=== PATIENT | female | born 1990 | race Caucasian/White ===

== ENCOUNTER → 2022-03-26 | Outpatient (CLI) | payer BC ==
--- NOTE | 2022-03-26 10:56 | Diagnostic Imaging Report ---
PROCEDURE: US Abdomen, limited. TECHNIQUE: Multiple realtime grayscale images were obtained over the abdomen in various projections. INDICATION: Right upper quadrant pain. FINDINGS: The liver is enlarged at approximately 21 cm. The liver shows diffuse increased echogenicity consistent with hepatic steatosis. No discrete liver mass is detected. The portal vein is patent and shows normal direction of flow. Gallbladder is without stones or sludge. There is no wall thickening or biliary ductal dilatation. Pancreas was obscured by bowel gas. Proximal aorta is nonaneurysmal. The mid and distal aorta were not visualized due to overlying bowel gas. IVC is unremarkable. Right kidney is without calculi or hydronephrosis. IMPRESSION: 1. Hepatomegaly and hepatic steatosis. 2. No evidence of cholelithiasis or acute cholecystitis. Dictated by: Dictated on workstation # [id number]
== END ==
LOC: RAD 09:09
PROVIDERS: ATTEND Surgery
DX: K76.0 Fatty (change of) liver, not elsewhere classified (principal)
CPT/HCPCS: 76705

== ENCOUNTER → 2022-04-08 | Outpatient (CLI) | payer BC ==
[~2022-04-08] MED LIST: CATHETER FLUSH 10 ML SYR IVP PRN
--- NOTE | 2022-04-08 15:49 | Diagnostic Imaging Report ---
HEPATOBILIARY SCAN DATE: April 08, 2022. INDICATION: Right upper quadrant ultrasound March 26, 2022. PROCEDURE: 4.88 mCi of Tc-99m choletec was administered intravenously and serial anterior planar images over the liver and upper abdomen were obtained. FINDINGS: There is homogenous activity throughout the liver with good clearance of background activity. This indicates good hepatocellular function. Biliary tree activity is seen at 10 minutes. The gallbladder is seen at 25 minutes. There is no enterogastric reflux. The biliary tree is patent. There is no evidence of acute cholecystitis. Ensure was administered. Gallbladder ejection fraction was calculated to be 7.4%. IMPRESSION: 1. No evidence of acute cholecystitis. 2. No evidence of complete common bile duct obstruction. 3. Gallbladder ejection fraction of 7.4% which is below normal limits and may be seen in the setting of biliary dyskinesia and/or chronic cholecystitis. Dictated by: Dictated on workstation # [id number]
== END ==
LOC: CARD 12:00
PROVIDERS: ATTEND Surgery
DX: R10.11 Right upper quadrant pain (principal)
CPT/HCPCS: 78227; A9537

== ENCOUNTER → 2022-09-23 | Outpatient (CLI) | payer OTHER ==
[~2022-09-23] MED LIST changes: +BARIUM for suspension 96% w/w (Vanilla Silq Medium Density) PO ONE; +BARIUM for suspension 98% w/w (Vanilla Silq High Density) PO ONE; -CATHETER FLUSH 10 ML SYR IVP PRN
--- NOTE | 2022-09-23 11:09 | Diagnostic Imaging Report ---
INDICATION: Pre-gastric sleeve workup. Patient ingested effervescent crystals as well as thin and thick barium and imaging of the esophagus, stomach and proximal small bowel was performed. Total of 58 seconds of fluoroscopic time was utilized. The esophagus has a smooth contour. No mass or stricture is identified. No hiatal hernia or gastroesophageal reflux was demonstrated. Stomach is without deformity. Proximal small bowel loops were not opacified on this study. IMPRESSION: Unremarkable upper gastrointestinal study. Dictated by: Dictated on workstation # [id number]
== END ==
LOC: RAD 08:49
PROVIDERS: ATTEND Surgery
DX: Z01.818 Encounter for other preprocedural examination (principal); K21.9 Gastro-esophageal reflux disease without esophagitis
CPT/HCPCS: 74246

== ENCOUNTER 2022-10-13 05:36 | Outpatient (CLI) | payer OTHER ==
[~2022-10-13] VITALS: Ht 165.1 cm; Wt 112.8 kg
[2022-10-13] MEDS ORDERED: LISD40CA3 PO (10:19)
[2022-10-13] MEDS ORDERED: BUSP10TA95 PO (10:19)
[2022-10-13] MEDS ORDERED: ALPR0.5T PO (10:19)
[2022-10-13] MEDS ORDERED: LAMO150T4 PO (10:19)
[2022-10-13] MEDS ORDERED: TRZ50T PO (10:19)
== END 2022-10-13 10:36 | disposition home or self-care (01) ==
LOC: PREOP 05:36
PROVIDERS: ATTEND Surgery
DX: Z01.818 Encounter for other preprocedural examination (principal)

== ENCOUNTER 2022-10-21 12:36 | Day surgery (SDC) | payer OTHER ==
--- NOTE | 2022-10-20 12:01 | HISTORY AND PHYSICAL ---
DATE OF SERVICE: 10/21/2022 ATTENDING PRIMARY CARE PHYSICIAN: Aidan Rodriguez at [facility] HISTORY OF PRESENT ILLNESS: The patient is a 32-year-old female with morbid obesity, who was interested in a laparoscopic gastric sleeve resection and meets the medical criteria for bariatric surgery. She reports that she began to gain the majority of her adult weight after the of her child 10 years ago and reports that the majority of this has been over the past two years. She reports that she has tried diets in the past such as Weight Watchers, Atkins, SlimFast, Keto, Beachbody, Herbalife, Shakeology and the protein powder book diet. She reports that she did lose some weight with a ketogenic diet; however, did regain weight back. She reports that she has done exercises such as weight training as well as cardiovascular exercises such as a treadmill and elliptical, but reports minimal to no success with exercise. She reports that she has tried tbux-gmu-knveiji diet medications in the past, but reports that she did not have any success with these medications. Her medical comorbidities related to obesity include anxiety and depression. MEDICAL HISTORY: Bipolar, depression, anxiety, endometriosis, hypothyroidism, migraines. SURGICAL HISTORY: Diagnostic laparoscopy in 2014, partial hysterectomy in 2016, bilateral oophorectomy in 2019, wisdom teeth removed in 2019. ALLERGIES: AMOXICILLIN, TREE NUTS ADHESIVE. MEDICATIONS: Xanax 0.5 mg p.r.n., buspirone 10 mg, lamotrigine 150 mg daily, trazodone 50 mg, Vyvanse 40 mg daily. FAMILY HISTORY: Paternal grandfather, leukemia. Maternal grandmother, colon cancer. SOCIAL HISTORY: Negative for tobacco, smoker or alcohol. VITAL SIGNS: Blood pressure is 134/78. Current weight is 248.8 pounds at 5 feet 5 inches with a body mass index of 41.4. REVIEW OF SYSTEMS: This is well-nourished female in no acute distress. She is not experiencing any shortness of breath or difficulty breathing. No chest pain, palpitations or diaphoresis. No nausea, vomiting or abdominal pain. No diarrhea or constipation. No red blood per rectum. No dark tarry stools. No fever or chills. No recent inadvertent weight loss. All other review of systems negative. ASSESSMENT AND PLAN: A 32-year-old female with morbid obesity and medical comorbidities related to obesity including anxiety and depression. She is interested in the laparoscopic gastric sleeve resection and meets the medical criteria for bariatric surgery. At this time, she has completed all the necessary tests and evaluations including overnight oximetry study, nutrition and psychology consults, upper GI contrast study and has received clearance from her primary care physician. Risks and benefits of the procedure as well as the procedure and home care instructions were explained to the patient. It was also discussed with her about preoperative as well as postoperative diet and exercise. She verbalized understanding of instructions and agrees to proceed as planned. At this time, we will proceed with scheduling her for the laparoscopic gastric sleeve resection. Job ID: [id number] DocumentID: [id number] Dictated Date: 10/20/2022 10:04:44 Data Entry Coordinator Date: 10/20/2022 11:59:00 Dictated By: ANTONINO WISE APRN
[~2022-10-21] VITALS: Ht 165.1 cm; Wt 104.0 kg
[2022-10-21] VITALS (8 sets, daily range): BP systolic 122–165; BP diastolic 77–102
[~2022-10-21 12:36] MED LIST changes: +ALPR0.5T PO; -BARIUM for suspension 96% w/w (Vanilla Silq Medium Density) PO ONE; -BARIUM for suspension 98% w/w (Vanilla Silq High Density) PO ONE; +BUSP10TA95 PO; +LAMO150T4 PO; +LISD40CA3 PO; +TRZ50T PO
[2022-10-21] MEDS ORDERED: CLINDAMYCIN 600 MG/50 ML IVPB 50 ML IV ONE ×2 (13:15→13:20)
[2022-10-21] MEDS: LACTATED RINGERS 1,000 ML IV SCH (13:17)
--- NOTE | 2022-10-21 14:08 | Progress Note-Pre Operative ---
Pre-Operative Progress Note Date of Available H&P: Oct 21, 2022 Date H&P Reviewed: Oct 21, 2022 Time H&P Reviewed: 14:00 History & Physical: No changes noted Pre-Operative Diagnosis: morbid obesity, HTN RICK SHAFER MD Oct 21, 2022 14:08
[2022-10-21] MEDS ORDERED: NS IV 1000 ML 1,000 ML IV SCH (14:15)
[2022-10-21] MEDS ORDERED: fentaNYL INJ 1,000 MCG in NS (IVPB) 80 ML IV PRN (14:15)
[2022-10-21] MEDS ORDERED: METOCLOPRAMIDE INJ 10 MG/2 ML (REGLAN) IV PRN (14:15)
[2022-10-21] MEDS ORDERED: diphenhydrAMINE 50 MG/ML INJ (BENADRYL) IV PRN (14:15)
[2022-10-21] MEDS ORDERED: diphenhydrAMINE 50 MG/ML INJ (BENADRYL) IVP PRN (14:15)
[2022-10-21] MEDS ORDERED: NALOXONE 0.4 MG/ML 1 ML (NARCAN) VIAL IV PRN (14:15)
[2022-10-21] MEDS ORDERED: ONDANSETRON 4 MG/2 ML (SDV) Z0FRAN IV PRN (14:15)
--- NOTE | 2022-10-21 14:19 | Discharge Inst-Surgical ---
D/C Lap Instructions-KIDO Reconcile Patient Problems Problems Reviewed?: Yes Follow Up Appt in 2 weeks Activity as tolerated No driving for 24 hours No driving while on pain medications Incentive Spirometry use every 2 hours while awake Clear liquid diet for 2 weeks No carbonated beverages, leafy greens, bread or crackers for 6 weeks. Symptoms to Report: Fever over 101 degree F, Nausea/Vomiting Infection Signs and Symptoms to report: Increased redness, Foul odor of wound, Increased drainage Bathing instructions: May shower Operative Area Clean/Dry; Keep incision clean/dry If any problems/questions: Contact your physician or go to Emergency Room ANTONINO WISE APRN Oct 21, 2022 14:19
[2022-10-21] MEDS ORDERED: ONDANSETRON 4 MG/2 ML (SDV) Z0FRAN IV ONE (14:45)
[2022-10-21] MEDS ORDERED: fentaNYL INJ 100 MCG/2 ML AMP IV ONE (14:45)
[2022-10-21] MEDS ORDERED: FAMOTIDINE 20MG/2ML IV (PEPCID) IV ONE (14:45)
[2022-10-21] MEDS ORDERED: fentaNYL INJ 100 MCG/2 ML AMP ONE ×2 (15:23→17:53)
[2022-10-21] MEDS ORDERED: LIDOCAINE 1% INJ 20 ML VIAL ONE (17:45)
[2022-10-21] MEDS ORDERED: proPOfol 200 MG/20 ML (DIPRIVAN) VIAL IV ONE (17:53)
[2022-10-21] MEDS ORDERED: LIDOCAINE PF 2% 5 ML (XYLOCAINE) VIAL ONE (17:53)
[2022-10-21] MEDS ORDERED: SEVOFLURANE (ULTANE) 15 ML INHAL SOLN ONE ×2 (17:53→19:41)
[2022-10-21] MEDS ORDERED: ROCURONIUM 10 MG/ML 5 ML SYRINGE IV ONE (17:53)
[2022-10-21] MEDS ORDERED: MIDAZOLAM 2 MG/2 ML (VERSED) VIAL ONE (17:54)
[2022-10-21] MEDS: LACTATED RINGERS 1,000 ML IV PRN ×2 (18:05→19:06)
[2022-10-21] MEDS ORDERED: NEOSTIGMINE 3 MG/3 ML VIAL ONE (19:32)
[2022-10-21] MEDS ORDERED: GLYCOPYRROLATE 0.2 MG/ML (ROBINUL) 2 ML VIAL ONE (19:32)
--- NOTE | 2022-10-21 19:37 | Progress Note-Post Operative ---
Post-Operative Progess Note Surgeon (s)/Glass Bulb Machine Adjuster (s) Surgeon RICK SHAFER MD Glass Bulb Machine Adjuster: evin english [employer] [facility] Pre-Operative Diagnosis morbid obesity, HTN Post-Operative Diagnosis same Procedure & Operative Findings Date of Procedure 10/21/22 Procedure Performed/Findings laparoscopic gastric sleeve resection. Anesthesia Type get Estimated Blood Loss Estimated blood loss (mL): minimal Specimens/Packing Specimens Removed stomach RICK SHAFER MD Oct 21, 2022 19:37
[2022-10-21] MEDS ORDERED: morphine INJ 10 MG/ML 1ML (SYR OR VIAL) ONE (20:01)
[2022-10-21] MEDS ORDERED: ONDANSETRON 4 MG/2 ML (SDV) Z0FRAN ONE (20:02)
[2022-10-21] MEDS ORDERED: PROMETHAZINE INJ 25 MG/ML (PHENERGAN) AMP IVP ONE (20:15)
[2022-10-21] MEDS ORDERED: HYDROmorphone 2 MG/ML VIAL (DILAUDID) IV ONE (20:15)
[2022-10-21] MEDS ORDERED: MEPERIDINE (DEMEROL) INJ 50 MG/ML IVP ONE (20:15)
[2022-10-21] MEDS ORDERED: ONDANSETRON 4 MG/2 ML (SDV) Z0FRAN IVP PRN (20:15)
[2022-10-21] MEDS ORDERED: morphine INJ 10 MG/ML 1ML (SYR OR VIAL) IVP ONE (20:15)
[2022-10-21] MEDS: ENOXAPARIN 40 MG/0.4 ML (LOVENOX) SYR SC SCH (22:36)
[2022-10-21] MEDS: ONDANSETRON 4 MG/2 ML (SDV) Z0FRAN IVP SCH ×2 (23:00→23:03)
[2022-10-21] MEDS: METOCLOPRAMIDE INJ 10 MG/2 ML (REGLAN) IVP SCH ×2 (23:00→23:03)
[2022-10-21] MEDS: metroNIDAZOLE 500MG/100ML IVPB 100 ML IV SCH ×2 (23:00→23:02)
[2022-10-21] MEDS: 1/2 NS W/KCL 20 MEQ/L 1,000 ML IV SCH ×2 (23:01→23:02)
[2022-10-22 03:36] VITALS: BP 137/79
[2022-10-22] MEDS: metroNIDAZOLE 500MG/100ML IVPB 100 ML IV SCH (05:50)
[2022-10-22] MEDS: ONDANSETRON 4 MG/2 ML (SDV) Z0FRAN IVP SCH ×2 (05:50→12:50)
[2022-10-22] MEDS: METOCLOPRAMIDE INJ 10 MG/2 ML (REGLAN) IVP SCH ×2 (05:50→12:50)
[2022-10-22] MEDS: 1/2 NS W/KCL 20 MEQ/L 1,000 ML IV SCH ×3 (05:51→14:30)
[2022-10-22 06:12] LABS: HEMATOCRIT 44 % (35-52); HEMOGLOBIN 15.2 g/dL (11.5-16.0); MEAN CORPUSCULAR HEMOGLOBIN 29 pg (25-34); MEAN CORPUSCULAR HGB CONC 34 g/dL (32-36); MEAN CORPUSCULAR VOLUME 86 fL (80-99); MEAN PLATELET VOLUME 11.6 fL (9.0-12.2); PLATELET COUNT 266 10^3/uL (130-400); WHITE BLOOD COUNT 13.5 10^3/uL (4.3-11.0)
[2022-10-22 06:32] LABS: POTASSIUM 4.1 MMOL/L (3.6-5.0)
[2022-10-22 06:33] LABS: CALCIUM 9.5 MG/DL (8.5-10.1)
[2022-10-22 06:37] LABS: CREATININE SERUM 0.85 MG/DL (0.60-1.30)
--- NOTE | 2022-10-22 06:38 | OPERATIVE REPORT ---
DATE OF SERVICE: 10/21/2022 ATTENDING PSYCH ARNP: Aidan Gonzales APRN PREOPERATIVE DIAGNOSES: Morbid obesity, anxiety, depression. POSTOPERATIVE DIAGNOSES: Morbid obesity, anxiety, depression. PROCEDURE: Laparoscopic gastric sleeve resection. SURGEON: Rick Shafre MD FELT DYEING MACHINE TENDER: Faustino Chin APRN ANESTHESIA: General endotracheal. ESTIMATED BLOOD LOSS: Minimal. FINDINGS: No hiatal hernia. Mild hepatomegaly. DISPOSITION: The patient tolerated the procedure well. INDICATIONS: The patient is a 32-year-old female who was in our surgical weight loss program for the laparoscopic gastric sleeve resection and meets the medical criteria for bariatric surgery. She reports that she began gaining the majority of her adult weight after the of her child 10 years ago and has gained a significant more amount of weight in the past 2 years as well. She has tried a number of diet and exercise attempts in the past with no success. She has tried diet attempts including Weight Watchers, Atkins, Slimfast, ketogenic diet, beach body diet, Herbalife, Shakeology, and the protein powder book diet. She states that she was able to lose some weight with ketogenic diet; however, regained the weight back. She has also tried a number of exercise regimens including resistance weight training, number of different cardiovascular exercise including treadmill and elliptical and does not report any success with weight loss. She has tried numerous zvpl-qdz-asfwses diet medications and states that these were ineffective. Her medical comorbidities related to her obesity include anxiety and depression. DESCRIPTION OF PROCEDURE: The patient was brought to the operating room, laid supine on the table. After adequate IV pain, sedative medications and general endotracheal intubation, the abdomen was prepped and draped in standard surgical fashion. A 0.5% Marcaine with epinephrine was then used to anesthetize the overlying skin in the left upper abdominal quadrant and a transverse skin incision made using a #15 blade. An 0 silk suture was applied to the medial aspect of the incision for traction and a Veress needle inserted with a low opening pressure of 0 mmHg. The abdomen was then insufflated to 15 mmHg pressure. The Veress needle removed and a 5 mm XL trocar placed followed by a 5 mm 45-degree angle laparoscope visualizing the peritoneal cavity. A 4-quadrant abdominal exploration was performed. There was mild hepatomegaly. No hiatal hernia. Under direct visualization, we then proceeded to place a mid abdominal left in the midline 10 mm port. After the skin and peritoneal lining were anesthetized using 0.5% Marcaine with epinephrine, a transverse skin incision made using a #15 blade. In a similar manner, a mid abdominal right to midline 15 mm port was placed followed by a right upper abdominal quadrant 5 mm port. The epigastric region was then anesthetized and a transverse skin incision was made using an #11 blade and the tract created through the abdominal wall layers using a trocar to a 5 mm port and through this opening, a medium size Jamilah liver retractor was placed and the left lobe of the liver retracted anteriorly and superiorly. The patient was then placed in steep reverse Trendelenburg position. We then measured 6 cm from the pylorus along the greater curvature and marked this area with a marking pen. The gastrocolic ligament next to the stomach was then opened using a Sonicision entering the lesser sac. We then proceeded with inferior dissection until we were approximately 2 cm below our marking with visualization with good hemostasis. We then proceeded cephalad taking down the short gastric vessels as well as the angle of His, connective tissue fibers and dissected medially until the left rylie of the diaphragm identified. Good hemostasis was observed. A 36-Emirati ViSiGi was then placed into the stomach under direct visualization and directed into the pylorus. Using this as our staple line guide, we first proceeded with a STACY 45 mm black load 2 cm below our marking. We then proceeded with two 60 mm black loads and two 60-mm purple loads leaving 2 cm next to the gastroesophageal junction and completing our gastric sleeve resection. The staple line corners were then clipped with 5 mm clips. A leak test was then performed to 35 mmHg air with no leak identified. Fibrin glue was then placed on to the staple line and the omentum placed onto the staple line. The stomach was removed through the 15 mm port site and the fascia and peritoneum through the 10 to 15 mm port sites were then closed under direct visualization using a Ricky-Sukhjinder device and 0 Vicryl suture. The abdomen was then desufflated and the remaining ports were removed. All skin incisions were closed using 4-0 Monocryl running subcuticular sutures. Wounds were then cleaned and covered with Dermabond. The patient tolerated the procedure well. We will proceed with DVT prophylaxis with early ambulation, calf SCDs, as well as Lovenox injections. She may have ice chips tonight. Gautamorrow morning, we will start a phase 1 clear liquid diet and once she is able to tolerate 60 mL of clear liquids, has adequate pain control with oral pain medication and is ambulating well, we will discharge her home where she will be instructed to continue with the phase 1 clear liquid diet for the next 2 weeks. Job ID: [id number] DocumentID: [id number] Dictated Date: 10/21/2022 19:46:19 Platform Attendant Date: 10/22/2022 06:36:00 Dictated By: RICK SHAFER MD [facility]
[2022-10-22] MEDS: RT-ALBUTEROL SULF 2.5 MG/3 ML PRE-MIX VIAL INH SCH ×3 (07:16→21:13)
[2022-10-22] MEDS: PANTOPRAZOLE 40 MG (PROTONIX) TAB PO SCH (07:43)
[2022-10-22] MEDS: ENOXAPARIN 40 MG/0.4 ML (LOVENOX) SYR SC SCH ×2 (07:56→20:42)
[2022-10-22] MEDS: SENNA W/DOCUSATE (SENOKOT S) TABLET PO SCH (07:56)
[2022-10-22 08:17] VITALS: BP 138/85
[2022-10-22] MEDS ORDERED: PANTOPRAZOLE 40 MG (PROTONIX) VIAL IV SCH (09:00)
[2022-10-22] MEDS: METOCLOPRAMIDE INJ 10 MG/2 ML (REGLAN) IVP PRN ×2 (10:20→17:55)
[2022-10-22 11:32] VITALS: BP 135/78
--- NOTE | 2022-10-22 13:31 | Progress Note ---
Subjective Date Seen by a Provider: Oct 22, 2022 Time Seen by a Provider: 13:10 Subjective/Events-last exam Patient seen and reports nausea and vomiting. Reports some abdominal pain. Not tolerating liquids at this time. Has not been up to ambulate yet. Objective Exam Vital Signs Date Time Temp Pulse Resp B/P (MAP) Pulse Ox O2 Delivery O2 Flow Rate FiO2 10/22/22 11:32 36.8 85 18 135/78 (97) 92 Room Air 10/22/22 08:17 36.8 85 18 138/85 (102) 91 Room Air 10/22/22 08:00 95 Room Air 2.00 10/22/22 05:09 95 10/22/22 03:36 37.0 95 16 137/79 (98) 94 Room Air 10/21/22 20:40 Room Air 10/21/22 20:36 36.9 20 160/97 (118) 94 Room Air 10/21/22 20:30 20 165/102 (123) 96 OxyMask 2.00 10/21/22 20:30 OxyMask 2.00 10/21/22 20:20 20 152/101 (118) 97 OxyMask 2.00 10/21/22 20:15 OxyMask 4.00 10/21/22 20:10 22 139/94 (109) 94 OxyMask 4.00 10/21/22 20:00 22 144/96 (112) 98 OxyMask 8.00 10/21/22 20:00 OxyMask 8 10/21/22 19:50 20 123/80 (94) 98 OxyMask 8 10/21/22 19:48 36.1 20 122/77 (92) 98 OxyMask 8 10/21/22 19:48 8 10/21/22 13:28 36.6 89 20 141/95 (110) 97 I & O 10/22/22 06:59 Intake Total 2060 ml Output Total 4900 ml Balance -2840 ml Capillary Refill : General Appearance: No Apparent Distress, WD/WN Neck: Normal Inspection, Supple Respiratory: No Accessory Muscle Use, No Respiratory Distress Cardiovascular: Regular Rate, Rhythm, No Edema Gastrointestinal: normal bowel sounds, soft, tenderness Extremity: Normal Inspection, Normal Range of Motion Neurologic/Psychiatric: Alert, Oriented x3 Skin: Normal Color, Warm/Dry Results Lab Laboratory Tests 10/22/22 06:05: White Blood Count 13.5H, Red Blood Count 5.18H, Hemoglobin 15.2, Hematocrit 44, Mean Corpuscular Volume 86, Mean Corpuscular Hemoglobin 29, Mean Corpuscular Hemoglobin Concent 34, Red Cell Distribution Width 11.7, Platelet Count 266, Mean Platelet Volume 11.6, Sodium Level 132L, Potassium Level 4.1, Chloride Level 98, Carbon Dioxide Level 19L, Anion Gap 15H, Blood Urea Nitrogen 7, Creatinine 0.85, Estimat Glomerular Filtration Rate 93, BUN/Creatinine Ratio 8, Glucose Level 155H, Calcium Level 9.5 Microbiology 10/21/22 MRSA Screen - Final, Complete MRSA not isolated Assessment/Plan Assessment/Plan Assess & Plan/Chief Complaint A 32 year old female with morbid obesity who is S/P lap gastric sleeve VSS Having nausea and vomiting, not tolerating liquids Continue pain and nausea meds as needed - will add decadron for nausea Patient instructed to try and use PERL PROGRAMMER less to see if N/V related to narcotic use May use oral pain meds when tolerating PO liquids Once patient ambulating, nausea, vomiting, pain under control, and tolerating clear liquids patient may be DC'd home. ANTONINO WISE TECHNICAL TRANSLATOR Oct 22, 2022 13:31
[2022-10-22] MEDS: ALPRAZolam 0.5 MG (XANAX) TAB PO PRN ×2 (14:13→22:18)
[2022-10-22] MEDS: ONDANSETRON 4 MG/2 ML (SDV) Z0FRAN IVP PRN ×2 (14:13→22:18)
[2022-10-22] MEDS: HYDROcodone/APAP 7.5MG-325 MG/15 ML (LORTAB) UDC PO PRN ×3 (14:22→22:17)
[2022-10-22] MEDS: LACTATED RINGERS 1,000 ML IV SCH ×2 (14:36→17:35)
--- NOTE | 2022-10-22 14:39 | Anesthesia-General Post-Op ---
General Patient Condition Mental Status/LOC: Same as Preop Cardiovascular: Satisfactory Nausea/Vomiting: Absent Respiratory: Satisfactory Pain: Controlled Complications: Absent Post Op Complications Complications None Follow Up Care/Instructions Patient Instructions None needed. Anesthesia/Patient Condition Patient Condition Patient is C/O significant N/V and abdominal pain. Unfortunately this is more common after a lap sleeve gastrectomy. They are trying to find a nausea and anxiety medication combination that will work well for her. She otherwise has stable vital signs, no apparent adverse anesthesia problems. JANEL HILTON DO Oct 22, 2022 14:39
[2022-10-22 15:58] VITALS: BP 110/60
[2022-10-22 20:06] VITALS: BP 110/62
[2022-10-22 23:22] VITALS: BP 117/67
[2022-10-23] MEDS: LACTATED RINGERS 1,000 ML IV SCH ×2 (02:15→09:17)
[2022-10-23 03:27] VITALS: BP 123/71
[2022-10-23] MEDS: HYDROcodone/APAP 7.5MG-325 MG/15 ML (LORTAB) UDC PO PRN ×2 (04:20→09:59)
[2022-10-23] MEDS: ONDANSETRON 4 MG/2 ML (SDV) Z0FRAN IVP PRN ×2 (04:20→10:00)
[2022-10-23] MEDS: ALPRAZolam 0.5 MG (XANAX) TAB PO PRN (04:20)
[2022-10-23] MEDS: PANTOPRAZOLE 40 MG (PROTONIX) TAB PO SCH (05:44)
[2022-10-23 07:30] VITALS: BP 133/92
[2022-10-23] MEDS: RT-ALBUTEROL SULF 2.5 MG/3 ML PRE-MIX VIAL INH SCH (08:28)
[2022-10-23] MEDS: ENOXAPARIN 40 MG/0.4 ML (LOVENOX) SYR SC SCH (09:16)
[2022-10-23] MEDS: SENNA W/DOCUSATE (SENOKOT S) TABLET PO SCH ×2 (09:16→10:00)
--- NOTE | 2022-10-23 11:18 | Progress Note ---
Subjective Date Seen by a Provider: Oct 23, 2022 Time Seen by a Provider: 11:00 Subjective/Events-last exam Patient reports doing well. Denies any N/V. Abdominal pain controlled. Tolerating clear liquid diet and ambulating. Objective Exam Vital Signs Date Time Temp Pulse Resp B/P (MAP) Pulse Ox O2 Delivery O2 Flow Rate FiO2 10/23/22 10:34 95 Room Air 0.00 10/23/22 08:00 95 Room Air 10/23/22 07:30 36.0 94 20 133/92 (106) 93 Room Air 10/23/22 03:27 36.8 80 18 123/71 (88) 93 Room Air 10/22/22 23:22 36.8 84 18 117/67 (84) 93 Room Air 10/22/22 21:13 96 Room Air 10/22/22 21:00 18 10/22/22 20:06 36.8 84 18 110/62 (78) 91 Room Air 10/22/22 20:00 Room Air 10/22/22 19:33 Room Air 10/22/22 15:58 36.8 75 14 110/60 (77) 93 Room Air 10/22/22 11:32 36.8 85 18 135/78 (97) 92 Room Air I & O 10/23/22 06:59 Intake Total 1970 ml Output Total 4700 ml Balance -2730 ml Capillary Refill : General Appearance: No Apparent Distress, WD/WN Neck: Normal Inspection, Supple Respiratory: No Accessory Muscle Use, No Respiratory Distress Cardiovascular: Regular Rate, Rhythm, No Edema Gastrointestinal: normal bowel sounds, soft, tenderness Extremity: Normal Inspection, Normal Range of Motion Neurologic/Psychiatric: Alert, Oriented x3 Skin: Normal Color, Warm/Dry Results Lab Microbiology 10/21/22 MRSA Screen - Final, Complete MRSA not isolated Assessment/Plan Assessment/Plan Assess & Plan/Chief Complaint A 32 year old female with morbid obesity who is S/P lap gastric sleeve VSS Nausea and vomiting - resolved Continue pain and nausea meds as needed - will add decadron for nausea Once patient ambulating, nausea, vomiting, pain under control, and tolerating clear liquids patient may be DC'd home. Will DC patient home and will send script of ANTONINO Lozano APRN Oct 23, 2022 11:18
[2022-10-23 11:28] VITALS: BP 133/92
== END 2022-10-23 11:28 | disposition home or self-care (01) ==
LOC: SDC 12:36 → 4TH 22:22 → SDC 10-23 11:28
PROVIDERS: ATTEND Surgery
DX: K29.50 Unspecified chronic gastritis without bleeding (principal); E66.01 Morbid (severe) obesity due to excess calories; I10 Essential (primary) hypertension; Z68.41 Body mass index [BMI] 40.0-44.9, adult; E03.9 Hypothyroidism, unspecified; F41.9 Anxiety disorder, unspecified; F32.A Depression, unspecified
CPT/HCPCS: 36415; 80048; 84703; 85027; 87081; 88307